=== PATIENT | female | born 2000 | race Caucasian/White ===

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

== ENCOUNTER 2019-02-25 22:23 | Emergency (ER) | payer MEDICAID | END 2019-02-26 | disposition left against medical advice (07) | LOC: EDUNIT# 22:23 → ER 22:25 | DX: O21.9 Vomiting of pregnancy, unspecified (principal); Z3A.08 8 weeks gestation of pregnancy ==

== ENCOUNTER → 2019-02-25 | Outpatient (CLI) | payer MEDICAID ==
--- NOTE | 2019-02-25 11:24 | Diagnostic Imaging Report ---
PROCEDURE: US OB SINGLE FETUS <14 WKS. TECHNIQUE: Multiple real-time grayscale images were obtained over the gravid uterus in various projections. INDICATION: dating. FINDINGS: There is an intrauterine gestational sac containing a pole. Mcgrew-rump length measurement is 18 mm consistent with 8 weeks 3 days gestation. heart rate was recorded at 169 beats per minute. No perigestational sac hemorrhage is detected. Gestational sac shape is within normal limits. Adnexa was evaluated. Ovaries were not visualized due to bowel gas. No adnexal mass or free fluid is identified. IMPRESSION: Single live IUP 8 weeks 3 days gestational age. The estimated date of confinement sonographically is 10/04/2019. Dictated by: Dictated on workstation # [id number]
== END ==
LOC: RAD 09:30
PROVIDERS: ATTEND Family Medicine
DX: Z34.91 Encounter for supervision of normal pregnancy, unspecified, first trimester (principal); Z3A.08 8 weeks gestation of pregnancy
CPT/HCPCS: 76801

== ENCOUNTER → 2019-05-12 | Outpatient (CLI) | payer MEDICAID ==
--- NOTE | 2019-05-12 11:36 | Diagnostic Imaging Report ---
INDICATION: survey TECHNIQUE: Multiple real-time grayscale images were obtained over the gravid uterus. COMPARISON: 02/25/2019 FINDINGS: The prior exam of 02/25/2019 noted a single live intrauterine approximately 8 weeks 3 days gestation. On this study the fetus is again visualized. The fetus is in variable presentation. heart motion was noted at a rate of 149 BPM was recorded. There were no abnormality is identified but the four-chamber heart view and the spine were not optimally visualized. A short-term (4-6 week) followup exam would be recommended for further evaluation of the heart and spine. The growth parameters are fairly uniform and have progressed as expected since the prior exam. The estimated weight is in the 43rd percentile. The amniotic fluid volume is within normal limits. The placenta is posterior and low-lying. The position of the placenta could also further evaluated on the followup exam. The cervix was visualized and measures 6.7 CM length. Biometrical measurements are as follows: Biparietal 4.54 cm, age 19 weeks 6 days. Head circumference 16.87 cm, age 19 weeks 4 days. Abdominal circumference 14.99 cm, age 20 weeks 2 days. Femur length 3.14 cm, age 19 weeks 6 days. Sonographic estimate age: 20 weeks 0 days. Sonographic estimated date of delivery: 09/29/2019. Estimated Weight: 323 gm (+/- 47 gm). LMP percentile: 83%. heart rate: 149 beats per minute. number: 1 of 1. IMPRESSION: 1. There is a single live fetus approximately 19 weeks 2 days gestation plus or minus one week. EDC remains October 04, 2019. 2. There were no abnormalities identified but the spine and four-chamber heart view were less than optimal. The placenta is also posterior and low-lying. Recommendations as above. 3. The growth parameters have progressed as expected since the prior exam. Dictated by: Dictated on workstation # [id number]
== END ==
LOC: RAD 09:18
PROVIDERS: ATTEND Family Medicine
DX: Z36.89 Encounter for other specified antenatal screening (principal); Z3A.19 19 weeks gestation of pregnancy
CPT/HCPCS: 76805

== ENCOUNTER → 2019-06-22 | Outpatient (CLI) | payer MEDICAID ==
--- NOTE | 2019-06-23 08:57 | Diagnostic Imaging Report ---
INDICATION: Followup survey TECHNIQUE: Multiple real-time grayscale images were obtained over the gravid uterus. COMPARISON: 05/12/2019 FINDINGS: Of 05/12/2019 noted a single live fetus approximately 19 weeks 2 days gestation. There were no abnormalities otherwise identified. The spine and four-chamber heart view were less than optimal. On this exam, the fetus is again visualized. The fetus is cephalic in presentation. heart motion was noted and a rate of 135 bpm was recorded. The spine and four-chamber heart view were better visualized on this exam. The spine and heart appear to be within normal limits. There is no other abnormality noted. The prior exam also noted that the placenta was posterior and low-lying. On this exam, the placenta remains posterior but is no longer low lying. The amniotic fluid volume is within normal limits. The growth perimeters were not obtained for this study. Biometrical measurements are as follows: Biparietal cm, age weeks days. Head circumference cm, age weeks days. Abdominal circumference cm, age weeks days. Femur length cm, age weeks days. Sonographic estimate age: weeks days. Sonographic estimated date of delivery: . Estimated Weight: gm (+/- gm). LMP percentile: %. heart rate: beats per minute. number: of . IMPRESSION: 1. There is a single live fetus in cephalic presentation. 2. There were no abnormalities identified. In particular the spine and the four-chamber heart view are within normal limits. 3. The placenta is posterior but no longer low lying. Dictated by: Dictated on workstation # [id number]
== END ==
LOC: RAD 16:02
PROVIDERS: ATTEND Family Medicine
DX: Z36.89 Encounter for other specified antenatal screening (principal); Z3A.25 25 weeks gestation of pregnancy
CPT/HCPCS: 76816

== ENCOUNTER 2019-09-13 20:37 | Outpatient (CLI) | payer MEDICAID ==
[~2019-09-13] VITALS: Ht 154.9 cm; Wt 70.9 kg
--- NOTE | 2019-09-13 20:44 | NUR ---
ADDY SURESH presented to unit via ambulation from ED, accompanied by SO, with c/o CRAMPING. ADDY SURESH weighed, gowned, voided, and to bed. EFHM and TOCO applied, VS taken. ADDY SURESH oriented to bed controls, call light, TV, heat, and A/C controls.
[2019-09-13 20:57] VITALS: BP 121/74
[2019-09-13 21:03] VITALS: BP 121/74
[2019-09-13 21:05] LABS: BILIRUBIN,URINE NEGATIVE (NEGATIVE); CLARITY,URINE SLIGHTLY CLOUDY; COLOR,URINE YELLOW; GLUCOSE, URINE (UA) NEGATIVE (NEGATIVE); KETONES,URINE 4+ (NEGATIVE); LEUKOCYTE ESTERASE ,URINE 1+ (NEGATIVE); NITRITE,URINE NEGATIVE (NEGATIVE); PH,URINE 6 (5-9); PROTEIN,URINE 2+ (NEGATIVE); UROBILINOGEN,URINE 1 MG/DL (NORMAL)
[2019-09-13 21:12] LABS: BACTERIA,URINE MODERATE /HPF; SQUAMOUS EPITHELIAL CELL,UR TNTC /HPF; WBC,URINE RARE /HPF
[2019-09-13 22:19] VITALS: BP 121/74
[2019-09-13] MEDS ORDERED: ACETAMINOPHEN 325 MG TABLET PO ONE (22:30)
[2019-09-13] MEDS ORDERED: ACETAMINOPHEN 500 MG TAB (TYLENOL) ONE (22:31)
--- NOTE | 2019-09-13 22:42 | NUR ---
Written discharge instructions reviewed with patient. Discharge instructions signed and copy given. Patient ambulated off unit, accompanied by mother. Condition stable. No signs or symptoms of distress.
--- NOTE | 2019-09-14 08:45 | Physician Query-Final Dx ---
RORY DUMONT 09/14/19 0844: Clinic Account Progress/Dx Physician Query: Please give diagnosis Please include # weeks gestation Date of Service Sep 13, 2019 at 20:37 ANEUDY SKINNER MD 09/16/19 0710: Clinic Account Progress/Dx DIAGNOSIS: Diagnosis 1. Intrauterine at 37 weeks gestation 2. Uterine irritability without labor RORY DUMONT Sep 14, 2019 08:44 ANEUDY SKINNER MD Sep 16, 2019 07:10
== END 2019-09-13 22:19 | disposition home or self-care (01) ==
LOC: WSo 20:37 → LDRP 20:37 → WSo 22:19
PROVIDERS: ATTEND Family Medicine
DX: O36.8190 Decreased fetal movements, unspecified trimester, not applicable or unspecified (principal); O26.899 Other specified pregnancy related conditions, unspecified trimester; R10.2 Pelvic and perineal pain; Z3A.00 Weeks of gestation of pregnancy not specified
CPT/HCPCS: 81000; 87088; 99213

== ENCOUNTER 2019-09-14 11:24 | Inpatient (IN) | payer MEDICAID ==
[2019-09-14] VITALS (46 sets, daily range): BP systolic 78–139; BP diastolic 38–81
[~2019-09-14] VITALS: Ht 155 cm; Wt 69.5 kg
--- NOTE | 2019-09-14 11:10 | NUR ---
ADDY SURESH presented to unit via ambulation from Dr. melendez, with c/o CONTRACTIONS. ADDY SURESH weighed, gowned, voided, and to bed. EFHM and TOCO applied, VS taken. ADDY SURESH oriented to bed controls, call light, TV, heat, and A/C controls.
--- NOTE | 2019-09-14 11:14 | NUR ---
Dr. Quiñonez called and orders rec'd for observation at this time.
--- NOTE | 2019-09-14 11:44 | NUR ---
Dr Quiñonez called to unit. Updated on pt cares. Orders for admission rec'd.
[2019-09-14 11:48] LABS: BILIRUBIN,URINE NEGATIVE (NEGATIVE); CLARITY,URINE CLEAR; COLOR,URINE YELLOW; GLUCOSE, URINE (UA) NEGATIVE (NEGATIVE); KETONES,URINE 4+ (NEGATIVE); LEUKOCYTE ESTERASE ,URINE NEGATIVE (NEGATIVE); NITRITE,URINE NEGATIVE (NEGATIVE); PH,URINE 5 (5-9); PROTEIN,URINE NEGATIVE (NEGATIVE); UROBILINOGEN,URINE NORMAL (NORMAL)
[2019-09-14] MEDS ORDERED: D5 LR IV SOLUTION 1,000 ML IV ONE (11:57)
[2019-09-14] MEDS ORDERED: FLU QUADRIvalent (5+ YOA) 2019-2020 (AFLURIA) 0.5 ML IM ONE (12:00)
[2019-09-14] MEDS ORDERED: MINERAL OIL CONCENTRATE 99.9% 15 ML UDC TOP PRN (12:00)
[2019-09-14 12:09] LABS: BACTERIA,URINE TRACE /HPF; RBC,URINE 0-2 /HPF; WBC,URINE 0-2 /HPF
[2019-09-14] MEDS: D5 LR IV SOLUTION 1,000 ML IV SCH ×2 (12:15→15:17)
--- NOTE | 2019-09-14 12:30 | NUR ---
report received from CAIT Ordonez. care assumed of pt.
[2019-09-14 12:40] LABS: BASOPHILS % (AUTO) 0 % (0-10); EOSINOPHILS # (AUTO) 0.2 10^3/uL (0.0-0.3); EOSINOPHILS % (AUTO) 2 % (0-10); HEMATOCRIT 32 % (35-52); HEMOGLOBIN 10.2 G/DL (11.5-16.0); LYMPHOCYTES # (AUTO) 1.7 X 10^3 (1.0-4.0); LYMPHOCYTES % (AUTO) 15 % (12-44); MEAN CORPUSCULAR HEMOGLOBIN 26 PG (25-34); MEAN CORPUSCULAR HGB CONC 32 G/DL (32-36); MEAN CORPUSCULAR VOLUME 80 FL (80-99); MEAN PLATELET VOLUME 11.2 FL (7.4-10.4); MONOCYTES # (AUTO) 0.6 X 10^3 (0.0-1.0); MONOCYTES % (AUTO) 5 % (0-12); NEUTROPHILS # (AUTO) 8.8 X 10^3 (1.8-7.8); NEUTROPHILS % (AUTO) 78 % (42-75); PLATELET COUNT 261 10^3/uL (130-400); RED CELL DISTRIBUTION WIDTH 14.1 % (10.0-14.5); WHITE BLOOD COUNT 11.3 10^3/uL (4.3-11.0)
--- NOTE | 2019-09-14 13:01 | NUR ---
pt ambulated to room 319 for labor.
--- NOTE | 2019-09-14 13:17 | NUR ---
was called with update on pt's status. no new orders received.
[2019-09-14] MEDS ORDERED: LACTATED RINGERS 1,000 ML IV ONE ×3 (13:18→14:29)
--- NOTE | 2019-09-14 13:29 | NUR ---
anesthesia notified of pt's request for epidural placement.
[2019-09-14] MEDS ORDERED: SUFENTA 0.6MCG/ML BUPIVA 0.125 100 ML ONE (13:42)
--- NOTE | 2019-09-14 13:42 | NUR ---
JEAN PAUL Morales here for epidural placement. Procedure explained, consent reviewed and signed by anesthesia. Questions answered to patient's satisfaction. Time out taken to verify correct patient/procedure. 1347- Patient up to side of bed, assisted into sitting position. Betadine prep done x3 and sterile drape applied. 1354- Local done, see anesthesia record. 1403- Test dose given, see anesthesia record for drug and dosage. Epidural catheter secured in place. Epidural placement complete. 1409-Assisted back into bed, monitors adjusted. Epidural dosed, see anesthesia record. Epidural of Sufenta/Bupvicaine @12cc/hr stated per pump. Patient tolerated procedure well.
[2019-09-14] MEDS ORDERED: fentaNYL INJECTION 100 MCG/2 ML AMP ONE (13:44)
[2019-09-14] MEDS ORDERED: OXYTOCIN/NORMAL SALINE 500 ML IV SCH ×2 (13:45→18:26)
--- NOTE | 2019-09-14 13:45 | History & Physical-OB ---
OB - Chief Complaint & HPI Date/Time Date of Admission: Date of Admission: Sep 14, 2019 at 12:35 Date seen by a Provider: Sep 14, 2019 Time Seen by a Provider: 13:40 Chief Complaint/History OB-Reason for Admission/Chief: Onset of Labor Hx : 2 Hx Para: 1 Expected Date of Delivery: Oct 04, 2019 Gestational Age in Weeks: 37 Gestational Age in Days: 1 Admission Nurse Assessment Rev: Yes History of Labs GBS negative Allergies and Home Medications Allergies Coded Allergies: No Known Drug Allergies (Unverified , 05/04/15) Home Medications [id number]/FA/Omega3/Dha/Fish Oil 1 Each Tab.chew, 1 EACH PO DAILY, (Reported) Patient Home Medication List Home Medication List Reviewed: Yes OB - History Hx of Present Care: Yes Ultrasounds: Normal mid trimester US Obstetrical Complications: None Medical Complications: None Delivery History Hx Blood Disorders: No Adverse Rxn to Tranfusion: No Patient Past Medical History No chronic medical problems Social History/Family History Recent Infectious Disease Expo: No Alcohol Use: Denies Use Recreational Drug Use: No Immunizations Hepatitis A: No Hepatitis B: No Tetanus Booster (TDap): Less than 5yrs OB - Admission Exam Physical Exam Vitals: Vital Signs 09/14/19 11:25 Temp 36.6 Pulse 90 Resp 18 B/P (MAP) 120/66 (84) HEENT: Moist Membranes Heart: Rhythm Normal Lungs: Clear Abdomen: Gravid Reflexes: Normal Cervical Dilatation: 3cm Effacement: 75% Station: -3 Membranes: Intact Heart Rate: 140's Accelerations: Accelerations Present Short Term Variability: Present Intensity: Moderate Labs Laboratory Tests Test 09/14/19 11:30 09/14/19 12:30 Range/Units Urine Color YELLOW Urine Clarity CLEAR Urine pH 5 5-9 Urine Specific [place] 1.020 1.016-1.022 Urine Protein NEGATIVE NEGATIVE Urine Glucose (UA) NEGATIVE NEGATIVE Urine Ketones 4+ H NEGATIVE Urine Nitrite NEGATIVE NEGATIVE Urine Bilirubin NEGATIVE NEGATIVE Urine Urobilinogen NORMAL NORMAL MG/DL Urine Leukocyte Esterase NEGATIVE NEGATIVE Urine RBC (Auto) NEGATIVE NEGATIVE Urine RBC 0-2 /HPF Urine WBC 0-2 /HPF Urine Squamous Epithelial Cells 5-10 /HPF Urine Crystals NONE /LPF Urine Bacteria TRACE /HPF Urine Casts NONE /LPF Urine Mucus SMALL H /LPF Urine Culture Indicated NO White Blood Count 11.3 H 4.3-11.0 10^3/uL Red Blood Count 3.95 L 4.35-5.85 10^6/uL Hemoglobin 10.2 L 11.5-16.0 G/DL Hematocrit 32 L 35-52 % Mean Corpuscular Volume 80 80-99 FL Mean Corpuscular Hemoglobin 26 25-34 PG Mean Corpuscular Hemoglobin Concent 32 32-36 G/DL Red Cell Distribution Width 14.1 10.0-14.5 % Platelet Count 261 130-400 10^3/uL Mean Platelet Volume 11.2 H 7.4-10.4 FL Neutrophils (%) (Auto) 78 H 42-75 % Lymphocytes (%) (Auto) 15 12-44 % Monocytes (%) (Auto) 5 0-12 % Eosinophils (%) (Auto) 2 0-10 % Basophils (%) (Auto) 0 0-10 % Neutrophils # (Auto) 8.8 H 1.8-7.8 X 10^3 Lymphocytes # (Auto) 1.7 1.0-4.0 X 10^3 Monocytes # (Auto) 0.6 0.0-1.0 X 10^3 Eosinophils # (Auto) 0.2 0.0-0.3 10^3/uL Basophils # (Auto) 0.0 0.0-0.1 10^3/uL OB - Assessment/Plan/Diagnosis Assessment Assessment: active labor (at 37w1d) Admission Dx IUP at 37w1d in labor Admission Status: Inpatient Order (span 2 midnights) Reason for Inpatient Admission: L&D Plan Plan: Other (L&D) Other Plan desires epidural pitocin as necessary ANEUDY SKINNER MD Sep 14, 2019 13:44
[2019-09-14] MEDS ORDERED: CATHETER FLUSH 10 ML SYR IV SCH ×2 (14:00→22:00)
[2019-09-14] MEDS ORDERED: diphenhydrAMINE 50 MG/ML INJ (BENADRYL) IV PRN (14:30)
[2019-09-14] MEDS ORDERED: METOCLOPRAMIDE INJ 10 MG/2 ML (REGLAN) IV PRN (14:30)
[2019-09-14] MEDS ORDERED: NALOXONE 0.4 MG/ML 1 ML (NARCAN) VIAL IV PRN ×2 (14:30)
[2019-09-14] MEDS ORDERED: ONDANSETRON 4 MG/2 ML (SDV) Z0FRAN IV PRN (14:30)
[2019-09-14] MEDS ORDERED: EPIDURAL (SUFENTA 0.6MCG/ML BUPIVA 0.125%) 100 ML BAG EPI PRN (14:30)
[2019-09-14] MEDS ORDERED: MEPIVACAINE (CARBOCAINE) 2% 50 ML VIAL ONE (17:43)
--- NOTE | 2019-09-14 18:26 | OB Labor & Delivery Record ---
L&D History Date of Service Date of Service: Sep 14, 2019 History Expected Date of Delivery: Oct 04, 2019 Gestational Age in Weeks: 37 Hx : 2 Hx Para: 1 Complications Events: Routine care Operative Indications (Cesarea: N/A-Vaginal Delivery Intrapartal Events: None L&D Stage1 Stage One Onset of Labor - Date: Sep 14, 2019 Onset of Labor - Time: 01:00 Monitors and Tracing Monitor Mode: Internal Heart Rate: 150 Monitor Accelerations: Uniform Monitor Decelerations: Variable Prison Variability: Average (6-10) Short Term Variability: Present Presentation: Vertex Vital Signs VS - Last 72 Hours, by Label 09/14/19 11:25 Temp 36.6 Pulse 90 Resp 18 B/P (MAP) 120/66 (84) Signs of Distress by FHT Signs of Distress no Rupture of Membranes Spontaneous Ruture of Membrane: No Amniotic Membrane Rupture Time: 13:30 Amniotic Membrane Fluid Desc.: Clear Vaginal Bleeding Description: None L&D Stage2 Stage Two Stage II Date: Sep 14, 2019 Stage II Time: 17:57 Monitors and Tracing Monitor Mode: Internal Heart Rate: 150 Monitor Accelerations: Uniform Monitor Decelerations: Variable Staffing Clerk Variability: Average (6-10) Short Term Variability: Present Position: Left Occiput Anterior Presentation: Vertex Signs of Distress by FHT Signs of Distress no Cord Descript/Complications Cord Vessel Description: 3 Vessels Delivery Type Infant Delivery Method: Spontaneous Vaginal Anterior Shoulder: Left Episiotomy/Perineal Laceration Laceraction(s)/Extensions: Yes Episiotomy Description: Midline, Perineal Extension/lac Sutures Used: Vicryl Degree (describe repair) no repair to periuretral tear since no bleeding and in good proximity. Condition of Infant Delivery 1 minute Comment: 7 5 minute Comment: 9 Condition of Infant Condition of : Living Exam: No Observed Abnormalities Resuscitation Resuscitation: N/A - Spontaneous Resp L&D Stage3 Stage Three Stage III Date: Sep 14, 2019 Stage III Time: 18:01 Pictocin Pitocin ml/hr: 125 Placenta Delivery Placenta Delivery: Spontaneous Delivery Summary Summary Estimated blood loss (mL): 200 Condition of Delivery Examined: Cervix Examined Intervention Required none ANEUDY SKINNER MD Sep 14, 2019 18:25
[2019-09-14] MEDS ORDERED: MEASLES,MUMPS,RUBELLA 1 EA INJ SQ ONE (18:30)
[2019-09-14] MEDS ORDERED: WITCH HAZEL(TUCKS) 40 EA JAR TOP PRN (18:30)
[2019-09-14] MEDS ORDERED: TETANUS,DIPTH,PERTUSS P/F (BOOSTRIX) 0.5 ML VIAL IM ONE (18:30)
[2019-09-14] MEDS ORDERED: BENZOCAINE/MENTHOL (DERMOPLAST) 56 ML CAN TP PRN (18:30)
--- NOTE | 2019-09-14 19:30 | NUR ---
report given to CAIT Olivia.
[2019-09-14] MEDS: DOCUSATE SODIUM 100 MG (COLACE) CAP PO SCH (23:50)
[2019-09-14] MEDS: IBUPROFEN 600 MG (MOTRIN) TAB PO SCH (23:50)
[2019-09-15] MEDS: ACETAMINOPHEN 500 MG TAB (TYLENOL) PO SCH ×2 (01:49→10:45)
[2019-09-15 04:00] VITALS: BP 103/64
[2019-09-15 06:09] LABS: BASOPHILS % (AUTO) 0 % (0-10); EOSINOPHILS # (AUTO) 0.2 10^3/uL (0.0-0.3); EOSINOPHILS % (AUTO) 2 % (0-10); HEMATOCRIT 29 % (35-52); HEMOGLOBIN 9.3 G/DL (11.5-16.0); LYMPHOCYTES # (AUTO) 3.3 X 10^3 (1.0-4.0); LYMPHOCYTES % (AUTO) 24 % (12-44); MEAN CORPUSCULAR HEMOGLOBIN 26 PG (25-34); MEAN CORPUSCULAR HGB CONC 33 G/DL (32-36); MEAN CORPUSCULAR VOLUME 81 FL (80-99); MEAN PLATELET VOLUME 11.8 FL (7.4-10.4); MONOCYTES # (AUTO) 1.4 X 10^3 (0.0-1.0); MONOCYTES % (AUTO) 10 % (0-12); NEUTROPHILS % (AUTO) 65 % (42-75); PLATELET COUNT 233 10^3/uL (130-400); RED CELL DISTRIBUTION WIDTH 14.1 % (10.0-14.5)
[2019-09-15] MEDS: IBUPROFEN 600 MG (MOTRIN) TAB PO SCH ×3 (06:24→18:19)
--- NOTE | 2019-09-15 07:15 | NUR ---
DR. SKINNER HERE.
--- NOTE | 2019-09-15 07:36 | Progress Note ---
Subjective Date Seen by a Provider: Sep 15, 2019 Time Seen by a Provider: 07:10 Subjective/Events-last exam Resting fairly well overnight. She had uterine cramping but this was controlled with ibuprofen and Tylenol. Objective Exam Vital Signs Date Time Temp Pulse Resp B/P (MAP) Pulse Ox O2 Delivery O2 Flow Rate FiO2 09/15/19 04:00 36.4 69 18 103/64 (77) 99 Room Air 09/14/19 23:50 36.8 91 18 127/81 (96) 100 Room Air 09/14/19 22:00 37.2 97 18 103/58 (73) Room Air 09/14/19 21:30 102 18 104/57 (73) Room Air 09/14/19 21:00 37.2 117 18 112/62 (79) Room Air 09/14/19 20:30 114 18 110/57 (74) Room Air 09/14/19 20:15 107 18 113/59 (77) Room Air 09/14/19 20:00 110 18 113/59 (77) Room Air 09/14/19 19:45 109 18 107/51 (69) Room Air 09/14/19 19:30 96 18 117/58 (77) Room Air 09/14/19 19:15 37.3 107 18 119/59 (79) Room Air 09/14/19 19:00 101 18 115/66 (82) Room Air 09/14/19 18:45 111 18 113/64 (80) Room Air 09/14/19 18:30 111 18 108/64 (79) Room Air 09/14/19 18:15 114 18 106/52 (70) Room Air 09/14/19 17:45 37.1 121 18 121/72 (88) Room Air 09/14/19 17:30 120 18 114/60 (78) 100 Room Air 09/14/19 17:15 37.2 125 18 100 Room Air 09/14/19 17:00 102 18 131/70 (90) 100 Room Air 09/14/19 16:45 124 18 119/65 (83) 100 Room Air 09/14/19 16:30 114 18 108/72 (84) 100 Room Air 09/14/19 16:15 108 18 123/67 (85) 100 Room Air 09/14/19 16:00 93 18 119/65 (83) 100 Room Air 09/14/19 15:45 102 18 121/63 (82) 100 Room Air 09/14/19 15:30 111 18 121/68 (85) 100 Room Air 09/14/19 15:15 69 18 128/65 (86) 100 Room Air 09/14/19 15:10 72 18 119/63 (81) 100 Room Air 09/14/19 15:05 82 18 117/63 (81) 100 Room Air 09/14/19 15:00 81 18 129/66 (87) 100 Room Air 09/14/19 14:55 73 18 125/70 (88) 100 Room Air 09/14/19 14:50 85 18 132/70 (90) 100 Room Air 09/14/19 14:45 81 18 129/66 (87) 100 Room Air 09/14/19 14:40 94 18 121/70 (87) 100 Room Air 09/14/19 14:35 124 18 92/51 (65) 100 Room Air 09/14/19 14:30 Room Air 09/14/19 14:28 129 20 89/53 (65) 100 Room Air 09/14/19 14:22 136 92/57 (69) Room Air 09/14/19 14:21 141 89/51 (64) Room Air 09/14/19 14:20 131 20 78/47 (57) 100 Room Air 09/14/19 14:17 111 20 87/52 (64) 100 Room Air 09/14/19 14:15 Room Air 09/14/19 14:12 93 18 78/38 (51) 97 Room Air 09/14/19 14:10 37.1 92 18 106/55 (72) 100 Room Air 09/14/19 14:05 105 18 113/59 (77) 97 Room Air 09/14/19 14:00 114 18 120/66 (84) 97 Room Air 09/14/19 13:55 99 18 121/71 (88) 99 Room Air 09/14/19 13:50 113 18 114/70 (85) 98 Room Air 09/14/19 13:30 115 18 139/64 (89) Room Air 09/14/19 13:00 37.0 72 18 130/65 (86) Room Air 09/14/19 11:25 36.6 90 18 120/66 (84) I & O 10/19 06:59 Intake Total 1000 ml Balance 1000 ml Capillary Refill : General Appearance: No Apparent Distress Respiratory: Lungs Clear Cardiovascular: Regular Rate, Rhythm Gastrointestinal: soft (with uterus firm) Results Lab Laboratory Tests 09/14/19 11:30: Urine Color YELLOW, Urine Clarity CLEAR, Urine pH 5, Urine Specific [place] 1.020, Urine Protein NEGATIVE, Urine Glucose (UA) NEGATIVE, Urine Ketones 4+H, Urine Nitrite NEGATIVE, Urine Bilirubin NEGATIVE, Urine Urobilinogen NORMAL, Urine Leukocyte Esterase NEGATIVE, Urine RBC (Auto) NEGATIVE, Urine RBC 0-2, Urine WBC 0-2, Urine Squamous Epithelial Cells 5-10, Urine Crystals NONE, Urine Bacteria TRACE, Urine Casts NONE, Urine Mucus SMALLH, Urine Culture Indicated NO 09/14/19 12:30: White Blood Count 11.3H, Red Blood Count 3.95L, Hemoglobin 10.2L, Hematocrit 32L , Mean Corpuscular Volume 80, Mean Corpuscular Hemoglobin 26, Mean Corpuscular Hemoglobin Concent 32, Red Cell Distribution Width 14.1, Platelet Count 261, Mean Platelet Volume 11.2H, Neutrophils (%) (Auto) 78H, Lymphocytes (%) (Auto) 15, Monocytes (%) (Auto) 5, Eosinophils (%) (Auto) 2, Basophils (%) (Auto) 0, Neutrophils # (Auto) 8.8H, Lymphocytes # (Auto) 1.7, Monocytes # (Auto) 0.6, Eosinophils # (Auto) 0.2, Basophils # (Auto) 0.0 09/15/19 05:35: White Blood Count 14.0H, Red Blood Count 3.54L, Hemoglobin 9.3L, Hematocrit 29L, Mean Corpuscular Volume 81, Mean Corpuscular Hemoglobin 26, Mean Corpuscular Hemoglobin Concent 33, Red Cell Distribution Width 14.1, Platelet Count 233, Mean Platelet Volume 11.8H, Neutrophils (%) (Auto) 65, Lymphocytes (%) (Auto) 24, Monocytes (%) (Auto) 10, Eosinophils (%) (Auto) 2, Basophils (%) (Auto) 0, Neutrophils # (Auto) 9.0H, Lymphocytes # (Auto) 3.3, Monocytes # (Auto) 1.4H, Eosinophils # (Auto) 0.2, Basophils # (Auto) 0.0 Assessment/Plan Assessment/Plan Assess & Plan/Chief Complaint 1. S/P day #1 -routine PP care orders Clinical Quality Measures DVT/VTE Risk/Contraindication: Risk Factor Score Per Nursin RFS Level Per Nursing on Admit: 1=Low/No VTE PPX ANEUDY SKINNER MD Sep 15, 2019 07:36
[2019-09-15] MEDS: DOCUSATE SODIUM 100 MG (COLACE) CAP PO SCH (08:39)
[2019-09-15 08:42] VITALS: BP 112/64
--- NOTE | 2019-09-15 08:45 | NUR ---
PT IN BED, ON THE PHONE. VS OBTAINED. MEDS GIVEN PO; SEE EMAR FOR FURTHER. INITIAL SHIFT ASSESSMENT COMPLETED; SEE INTERVENTION FOR FURTHER. NO NEEDS VOICED. CALL LIGHT WITHIN REACH. S/O SLEEPING AT THE BEDSIDE.
--- NOTE | 2019-09-15 09:24 | Anesthesia-Regional Post-Op ---
Regional Patient Condition Mental Status: Alert, Oriented x3 Circulation: Same as Pre-Op Headache: Absent Sensation: Full Recovery Motor Block: Absent Post Op Complications Complications None Follow Up Care/Instructions Patient Instructions None needed. Anesthesia/Patient Condition Patient is doing well, no complaints, stable vital signs, no apparent adverse anesthesia problems. No complications reported per nursing. MYKE VINCENT CRNA Sep 15, 2019 09:24
--- NOTE | 2019-09-15 10:48 | NUR ---
PT IN BED, CHANGING 'S DIAPER. ROUTINE TYLENOL GIVEN PO; SEE EMAR FOR FURTHER. VISITORS AT THE BEDSIDE. NO NEEDS VOICED.
[2019-09-15 12:44] VITALS: BP 113/71
--- NOTE | 2019-09-15 12:45 | NUR ---
PT UP IN ROOM, ROOM SERVICE JUST DELIVERED [email or web address] MEAL. VS OBTAINED. MEDS GIVEN PO; SEE EMAR FOR FURTHER. IV DC'D; CATHETER TIP INTACT. GAUZE AND BAND AID APPLIED OVER SITE. NO NEEDS VOICED.
[2019-09-15 16:07] VITALS: BP 112/65
--- NOTE | 2019-09-15 17:07 | Discharge Summary ---
Diagnosis/Chief Complaint Date of Admission Sep 14, 2019 at 12:35 Date of Discharge September 15, 2019 Discharge Date: Sep 15, 2019 Discharge Time: 17:00 Admission Diagnosis Admission Diagnosis 1. IUP at [id number] Discharge Diagnosis 1. IUP at [id number] Reason Hospital Visit 19 yo G2 now T2L2 female who initially presented to [facility] services in the am of 10-14 in active labor. Her EDC is Oct 2019. care essentially unremarkable. GBS status was negative. Discharge Summary-OBS Procedures 1. Epidural per anesthesia 2. 3. Repair of MLE Discharge Physical Examination Allergies: Coded Allergies: No Known Drug Allergies (Unverified , 05/04/15) Vitals & I&Os Vital Signs Date Time Temp Pulse Resp B/P (MAP) Pulse Ox O2 Delivery O2 Flow Rate FiO2 09/15/19 16:07 36.8 70 18 112/65 (81) 98 Room Air General Appearance: No Acute Distress Respiratory: Clear to Auscultation Cardiovascular: Regular Rate Abdominal: Soft (with uterus firm) Neuro: Normal Speech Psych/Mental Status: Mental Status NL Hospital Course Was the Problem List Reviewed?: Yes Following admission in the morning of September 14, 2019 she underwent labor. As previously mentioned she was 3 cm dilated upon presentation. Her fluid was n oted to be clear. Ultimately she received epidural per anesthesia. She required Pitocin augmentation. Ultimately she went on to deliver a term viable female with Apgars of 7 at 1 minute and 9 at 5 minutes. See labor and delivery summary for full details. Following delivery patient underwent routine care orders. She had no complications during the remainder of hospital stay. Her hemoglobin on the morning after delivery was noted to be 9.3 compared to admission hemoglobin of 10.2. She tolerated regular diet. She did not complain of any shortness of breath or leg pain. She was felt ready for dismissal after 24 hour stay. She required only Tylenol and ibuprofen for discomfort. All questions were answered and she will follow up in [address] Skinner. Discharge Instructions to patient/family Please see electronic discharge instructions given to patient. Discharge Medications Reviewed and agree with Discharge Medication list on patient's Discharge Instruction sheet Clinical Quality Measures DVT/VTE Risk/Contraindication: Risk Factor Score Per Nursin RFS Level Per Nursing on Admit: 1=Low/No VTE PPX ANEUDY SKINNER MD Sep 15, 2019 17:07
--- NOTE | 2019-09-15 17:10 | Discharge Inst-Women's Service ---
Discharge Inst-Women's Serv Depart Medication/Instructions New, Converted or Re-Newed RX: Other Instructions may use over the counter ibuprofen 200mg and take 2 or 3 every 6 hours as needed for cramps. Problems Reviewed?: No Consults/Follow Up Additional Follow Up: Yes (with Dr Skinner in 6 weeks.) Activity Activity: Activity as Tolerated Driving Instructions: No Driving for 1 Week Nothing Inside Vagina: No [place] (for 6 weeks.) Diet Discharge Diet: Regular Diet Return to The Hospital For: as below Symptoms to Report to : Bleeding Excessive, Pain Increased, Fever Over 101 Degrees F, Vaginal Discharge Foul For Any Problems or Questions: Contact Your Physician ANEUDY SKINNER MD Sep 15, 2019 17:10
[2019-09-15] MEDS ORDERED: TETANUS,DIPTH,PERTUSS P/F (BOOSTRIX) 0.5 ML VIAL IM ONE (18:44)
[2019-09-15] MEDS ORDERED: FLU QUADRIvalent (5+ YOA) 2019-2020 (AFLURIA) 0.5 ML IM ONE ×2 (18:44→18:46)
[2019-09-15 19:43] VITALS: BP 122/80
--- NOTE | 2019-09-15 20:00 | NUR ---
Written discharge instructions reviewed with patient. Discharge instructions signed and copy given. Patient ambulated off unit, accompanied by staff, S.O. and secured in carseat. Condition stable. No signs or symptoms of distress.
== END 2019-09-15 20:00 | disposition home or self-care (01) | DRG 807 ==
LOC: WSo 11:24 → LDRP 11:25 → WSo 11:44 → LDRP 12:35
PROVIDERS: ADMIT Family Medicine; ATTEND Family Medicine
PROC: 10E0XZZ Delivery of Products of Conception, External Approach (ICD-10-PCS; principal; 2019-09-14)
PROC: 0W8NXZZ Division of Female Perineum, External Approach (ICD-10-PCS; 2019-09-14)
DX: O71.82 Other specified trauma to perineum and vulva (principal); Z3A.37 37 weeks gestation of pregnancy; Z37.0 Single live birth; Z23 Encounter for immunization
CPT/HCPCS: 36415; 81000; 85025; 86850; 86900; 86901; 87088; 90715; 99212; 99213

== ENCOUNTER → 2020-07-05 | Outpatient (CLI) | payer MEDICAID, OTHER ==
--- NOTE | 2020-07-05 13:25 | Diagnostic Imaging Report ---
PROCEDURE: US OB SINGLE FETUS <14 WKS. TECHNIQUE: Multiple Real-time grayscale images were obtained over the gravid uterus in various projections. INDICATION: dating. FINDINGS: There is an intrauterine gestational sac containing a pole. The crown/rump length measurement is 3.6 cm, consistent with a 10 week 4 day gestation. The heart rate was recorded at 167 BPM. No nayeli-gestational sac hemorrhage is detected. The adnexa are unremarkable. No mass or free fluid is seen. IMPRESSION: There is a single live IUP of approximately 10 weeks 4 days gestational age. The estimated date of confinement sonographically is 01/27/2021. Dictated by: Dictated on workstation # [id number]
== END ==
LOC: RAD 10:32
PROVIDERS: ATTEND Family Medicine
DX: Z34.91 Encounter for supervision of normal pregnancy, unspecified, first trimester (principal); Z3A.10 10 weeks gestation of pregnancy
CPT/HCPCS: 76801

== ENCOUNTER → 2020-09-01 | Outpatient (CLI) | payer OTHER ==
[~2020-09-01] MED LIST changes: -OXYC-465 PO; +OXYC-556 PO
--- NOTE | 2020-09-01 16:44 | Diagnostic Imaging Report ---
INDICATION: survey. TECHNIQUE: Multiple real-time grayscale images were obtained over the gravid uterus. COMPARISON: 07/05/2020. FINDINGS: A single live intrauterine gestation is visualized in variable position. The placenta is anterior and not low lying. CHIQUITA is 11.6. Estimated weight is 267 g, consistent with the 53rd percentile. The kidneys, bladder, stomach, four-chamber heart, three-vessel cord, spine, and cord insertion all are visualized and have an unremarkable sonographic appearance. The intracranial contents are suboptimally visualized due to position. Within these limitations, no obvious abnormalities are seen. Cervical length measures 3.5 cm without evidence of funneling. Biometrical measurements are as follows: Biparietal 4.30 cm, age 19 weeks 1 days. Head circumference 15.65 cm, age 18 weeks 4 days. Abdominal circumference 13.78 cm, age 19 weeks 2 days. Femur length 2.87 cm, age 18 weeks 6 days. Sonographic estimate age: 19 weeks 0 days. Sonographic estimated date of delivery: 01/26/2021. Estimated Weight: 267 gm (+/- 39 gm). LMP percentile: 53%. heart rate: 142 beats per minute. number: 1 of 1. IMPRESSION: 1. Single live intrauterine gestation measuring 19 weeks 0 days with an estimated due date of 01/26/2021. These are within range with clinical dates. 2. Somewhat suboptimal evaluation of the intracranial contents due to position. No obvious abnormalities are visualized. The remaining anatomic structures are unremarkable. Recommend follow-up as indicated. Dictated by: Dictated on workstation # [id number]
== END ==
LOC: RAD 15:15
PROVIDERS: ATTEND Family Medicine
DX: Z36.89 Encounter for other specified antenatal screening (principal); Z3A.19 19 weeks gestation of pregnancy
CPT/HCPCS: 76805

== ENCOUNTER → 2020-10-11 | Outpatient (CLI) | payer OTHER ==
--- NOTE | 2020-10-11 14:36 | Diagnostic Imaging Report ---
INDICATION: Follow-up intracranial anatomy. TECHNIQUE: Multiple real-time grayscale images were obtained over the gravid uterus. COMPARISON: 09/01/2020. FINDINGS: There is a single live fetus in a cephalic presentation. heart rate was recorded at 140 bpm. Placenta is anterior. Amniotic fluid index is normal. Cervical length is 5.4 cm. brain anatomy was visualized today and appears unremarkable. IMPRESSION: Unremarkable Limited obstetrical ultrasound. Dictated by: Dictated on workstation # [id number]
== END ==
LOC: RAD 12:42
PROVIDERS: ATTEND Family Medicine
DX: Z09 Encounter for follow-up examination after completed treatment for conditions other than malignant neoplasm (principal)
CPT/HCPCS: 76816

== ENCOUNTER 2020-12-08 14:07 | Outpatient (CLI) | payer MEDICAID ==
[2020-12-08 14:35] VITALS: BP 119/75
--- NOTE | 2020-12-09 08:30 | Physician Query-Final Dx ---
RORY DUMONT 12/09/20 0830: Clinic Account Progress/Dx Physician Query: Please give diagnosis Please include # weeks gestation Date of Service Dec 08, 2020 at 14:07 ANEUDY SKINNER MD 12/12/20 0637: Clinic Account Progress/Dx DIAGNOSIS: Diagnosis 1. IUP at 32 weeks gestation 2. Decreased movement-reassuring RORY DUMONT Dec 09, 2020 08:30 ANEUDY SKINNER MD Dec 12, 2020 06:37
== END 2020-12-08 14:47 | disposition home or self-care (01) ==
LOC: WSo 14:07 → LDRP 14:08 → WSo 14:47
PROVIDERS: ATTEND Family Medicine
DX: O36.8190 Decreased fetal movements, unspecified trimester, not applicable or unspecified (principal); Z3A.00 Weeks of gestation of pregnancy not specified
CPT/HCPCS: 59025

== ENCOUNTER 2021-01-21 16:39 | Inpatient (IN) | payer BC, MEDICAID ==
[2021-01-21] VITALS (35 sets, daily range): BP systolic 85–138; BP diastolic 41–82
[~2021-01-21] VITALS: Ht 154.9 cm; Wt 77.0 kg
[2021-01-21] MEDS ORDERED: LIDOCAINE/EPI 2% 1:200,00 (XYLOCAINE) 10 ML VIAL INJ PRN (17:15)
[2021-01-21] MEDS ORDERED: D5 LR IV SOLUTION 1,000 ML IV SCH (17:15)
[2021-01-21] MEDS ORDERED: MINERAL OIL CONCENTRATE 99.9% 15 ML UDC TOP PRN (17:15)
[2021-01-21] MEDS ORDERED: D5 LR IV SOLUTION 1,000 ML IV ONE (17:28)
[2021-01-21] MEDS ORDERED: BUPIVACAINE 0.25% 30 ML (SENSORCAINE) VIAL ONE (17:39)
[2021-01-21] MEDS ORDERED: fentaNYL INJECTION 100 MCG/2 ML AMP ONE (17:39)
[2021-01-21] MEDS ORDERED: LIDOCAINE PF 2% 5 ML (XYLOCAINE) VIAL ONE (17:39)
[2021-01-21] MEDS ORDERED: LACTATED RINGERS 1,000 ML IV SCH ×2 (18:00→18:15)
[2021-01-21] MEDS ORDERED: fentaNYL 2 mcg/ml BUPIVA 0.125 100 ML ONE (18:03)
[2021-01-21] MEDS ORDERED: NALOXONE 0.4 MG/ML 1 ML (NARCAN) VIAL IV PRN (18:15)
[2021-01-21] MEDS ORDERED: EPIDURAL (fentaNYL 2 MCG/ML BUPIVA 0.125%)100 ML BAG EPI PRN (18:15)
[2021-01-21] MEDS ORDERED: ONDANSETRON 4 MG/2 ML (SDV) Z0FRAN IV PRN (18:15)
[2021-01-21] MEDS ORDERED: diphenhydrAMINE 50 MG/ML INJ (BENADRYL) IV PRN (18:15)
[2021-01-21 18:16] LABS: BASOPHILS # (AUTO) 0.1 10^3/uL (0.0-0.1); BASOPHILS % (AUTO) 0 % (0-10); EOSINOPHILS # (AUTO) 0.2 10^3/uL (0.0-0.3); EOSINOPHILS % (AUTO) 1 % (0-10); HEMATOCRIT 32 % (35-52); HEMOGLOBIN 10.2 g/dL (11.5-16.0); LYMPHOCYTES % (AUTO) 16 % (12-44); MEAN CORPUSCULAR HEMOGLOBIN 26 pg (25-34); MEAN CORPUSCULAR HGB CONC 32 g/dL (32-36); MEAN CORPUSCULAR VOLUME 80 fL (80-99); MONOCYTES # (AUTO) 0.8 10^3/uL (0.0-1.0); MONOCYTES % (AUTO) 6 % (0-12); NEUTROPHILS # (AUTO) 9.2 10^3/uL (1.8-7.8); NEUTROPHILS % (AUTO) 75 % (42-75); PLATELET COUNT 237 10^3/uL (130-400); WHITE BLOOD COUNT 12.3 10^3/uL (4.3-11.0)
[2021-01-21] MEDS ORDERED: ONDANSETRON 4 MG/2 ML (SDV) Z0FRAN ONE (19:52)
[2021-01-21] MEDS ORDERED: OXYTOCIN PRE-MIX DRIP 500 ML IV SCH ×2 (20:00→22:00)
--- NOTE | 2021-01-21 20:00 | History & Physical-OB ---
OB - Chief Complaint & HPI Date/Time Date of Admission: January 21, 2021 Date seen by a Provider: Jan 21, 2021 Time Seen by a Provider: 19:45 Chief Complaint/History OB-Reason for Admission/Chief: Onset of Labor Hx : 3 Hx Para: 2 Expected Date of Delivery: Jan 27, 2021 Gestational Age in Weeks: 39 Gestational Age in Days: 1 Admission Nurse Assessment Rev: Yes History of Labs GBS neg Allergies and Home Medications Allergies Coded Allergies: No Known Drug Allergies (Unverified , 05/04/15) Home Medications [id number]/FA/Omega3/Dha/Fish Oil 1 Each Tab.chew, 1 EACH PO DAILY, (Reported) Patient Home Medication List Home Medication List Reviewed: Yes OB - History Hx of Present Care: Yes Ultrasounds: Normal mid trimester US Obstetrical Complications: None Medical Complications: None Delivery History Hx Blood Disorders: No Adverse Rxn to Tranfusion: No Patient Past Medical History No chronic medical problems Immunizations Hepatitis A: No Hepatitis B: No Tetanus Booster (TDap): Less than 5yrs OB - Admission Exam Physical Exam Vitals: Vital Signs 01/21/21 01/21/21 01/21/21 18:26 18:48 18:54 Temp 36.8 Pulse 89 Resp 16 B/P (MAP) 105/57 (73) Pulse Ox 100 O2 Delivery Room Air HEENT: Moist Membranes Heart: Rhythm Normal Lungs: Clear Abdomen: Gravid Cervical Dilatation: 5cm Effacement: 75% Station: -3 Membranes: Intact Heart Rate: 140's Accelerations: Accelerations Present Short Term Variability: Present Detention Variability: Average (6-25) Contractions on Admission: < 5 Minutes Apart Intensity: Moderate Labs Laboratory Tests Test 01/21/21 18:00 Range/Units White Blood Count 12.3 H 4.3-11.0 10^3/uL Red Blood Count 4.00 3.80-5.11 10^6/uL Hemoglobin 10.2 L 11.5-16.0 g/dL Hematocrit 32 L 35-52 % Mean Corpuscular Volume 80 80-99 fL Mean Corpuscular Hemoglobin 26 25-34 pg Mean Corpuscular Hemoglobin Concent 32 32-36 g/dL Red Cell Distribution Width 15.3 H 10.0-14.5 % Platelet Count 237 130-400 10^3/uL Mean Platelet Volume 12.0 9.0-12.2 fL Immature Granulocyte % (Auto) 1 % Neutrophils (%) (Auto) 75 42-75 % Lymphocytes (%) (Auto) 16 12-44 % Monocytes (%) (Auto) 6 0-12 % Eosinophils (%) (Auto) 1 0-10 % Basophils (%) (Auto) 0 0-10 % Neutrophils # (Auto) 9.2 H 1.8-7.8 10^3/uL Lymphocytes # (Auto) 2.0 1.0-4.0 10^3/uL Monocytes # (Auto) 0.8 0.0-1.0 10^3/uL Eosinophils # (Auto) 0.2 0.0-0.3 10^3/uL Basophils # (Auto) 0.1 0.0-0.1 10^3/uL Immature Granulocyte # (Auto) 0.1 0.0-0.1 10^3/uL OB - Assessment/Plan/Diagnosis Assessment Assessment: active labor Admission Dx IUP at 39w1d gestation in active labor Admission Status: Inpatient Order (span 2 midnights) Reason for Inpatient Admission: L&D Plan Plan: Expectant Management Other Plan -desires epidural -pitocin if necessary ANEUDY SKINNER MD Jan 21, 2021 20:00
--- NOTE | 2021-01-21 21:51 | OB Labor & Delivery Record ---
L&D History Date of Service Date of Service: Jan 21, 2021 History Expected Date of Delivery: Jan 27, 2021 Gestational Age in Weeks: 39 Hx : 3 Hx Para: 3 Complications Events: Routine care Operative Indications (Cesarea: N/A-Vaginal Delivery Intrapartal Events: None L&D Stage1 Stage One Onset of Labor - Date: Jan 21, 2021 Onset of Labor - Time: 10:00 Monitors and Tracing Monitor Mode: External Heart Rate: 130 Monitor Accelerations: Uniform Monitor Decelerations: None Station: -2 Imaging Scheduler Variability: Average (6-10) Short Term Variability: Present Presentation: Vertex Vital Signs VS - Last 72 Hours, by Label 01/21/21 01/21/21 01/21/21 01/21/21 16:53 18:06 18:23 18:25 Temp 36.8 Pulse 100 90 106 102 Resp 16 16 16 B/P (MAP) 134/67 (89) 124/73 (90) 138/82 (100) 136/82 (100) Pulse Ox 98 O2 Delivery Room Air Room Air 01/21/21 01/21/21 01/21/21 01/21/21 18:26 18:29 18:32 18:34 Temp 36.8 Pulse 90 103 112 110 Resp 20 B/P (MAP) 131/80 (97) 132/80 (97) 115/67 (83) Pulse Ox 99 O2 Delivery Room Air 01/21/21 01/21/21 01/21/21 01/21/21 18:38 18:42 18:45 18:48 Pulse 102 99 100 74 B/P (MAP) 108/59 (75) 104/55 (71) 105/56 (72) 85/41 (56) Pulse Ox 99 99 99 100 O2 Delivery Room Air Room Air Room Air Room Air 01/21/21 01/21/21 01/21/21 18:50 18:52 18:54 Pulse 79 91 89 Resp 16 B/P (MAP) 89/51 (64) 94/52 (66) 105/57 (73) Signs of Distress by FHT Signs of Distress no Rupture of Membranes Spontaneous Ruture of Membrane: No Amniotic Membrane Rupture Time: 19:45 Amniotic Membrane Fluid Desc.: Clear Vaginal Bleeding Description: None Induction/Anesthesia Epidural Cath Placement - Time: 1827 L&D Stage2 Stage Two Stage II Date: Jan 21, 2021 Stage II Time: 21:29 Monitors and Tracing Monitor Mode: Internal Heart Rate: 130 Monitor Accelerations: Uniform Monitor Decelerations: Early Imaging Scheduler Variability: Average (6-10) Short Term Variability: Present Position: Left Occiput Anterior Presentation: Vertex Signs of Distress by FHT Signs of Distress no Cord Descript/Complications Cord Vessel Description: 3 Vessels Delivery Type Delivery Method: Spontaneous Vaginal Anterior Shoulder: Left Episiotomy/Perineal Laceration Laceraction(s)/Extensions: Yes Episiotomy Description: Periurethral Extnsion/lac Sutures Used: Vicryl Condition of Delivery 1 minute Comment: 8 5 minute Comment: 9 Condition of Condition of Infant: Living Exam: No Observed Abnormalities Resuscitation Resuscitation: N/A - Spontaneous Resp L&D Stage3 Stage Three Stage III Date: Jan 21, 2021 Stage III Time: 21:33 Pictocin Pitocin Administration mu/min: 12 Placenta Delivery Placenta Delivery: Spontaneous Delivery Summary Summary Estimated blood loss (mL): 150 Condition of Delivery Examined: Cervix Examined Post Hemorrhage: No Intervention Required none ANEUDY SKINNER MD Jan 21, 2021 21:51
[2021-01-21] MEDS ORDERED: CATHETER FLUSH 10 ML SYR IV SCH ×2 (22:00)
[2021-01-21] MEDS ORDERED: BENZOCAINE/MENTHOL (DERMOPLAST) 60 ML CAN TP PRN (22:00)
[2021-01-21] MEDS ORDERED: TETANUS,DIPTH,PERTUSS P/F (BOOSTRIX) 0.5 ML VIAL IM ONE (22:00)
[2021-01-21] MEDS ORDERED: MEASLES,MUMPS,RUBELLA 1 EA INJ SQ ONE (22:00)
[2021-01-21] MEDS ORDERED: WITCH HAZEL(TUCKS) 40 EA JAR TOP PRN (22:00)
[2021-01-21] MEDS: IBUPROFEN 600 MG (MOTRIN) TAB PO SCH (22:45)
[2021-01-22] MEDS: ACETAMINOPHEN 500 MG TAB (TYLENOL) PO SCH ×4 (00:15→20:00)
[2021-01-22 05:00] VITALS: BP 116/69
[2021-01-22] MEDS: IBUPROFEN 600 MG (MOTRIN) TAB PO SCH ×4 (05:06→23:57)
[2021-01-22 06:01] LABS: BASOPHILS # (AUTO) 0.1 10^3/uL (0.0-0.1); BASOPHILS % (AUTO) 0 % (0-10); EOSINOPHILS # (AUTO) 0.2 10^3/uL (0.0-0.3); EOSINOPHILS % (AUTO) 1 % (0-10); HEMATOCRIT 30 % (35-52); HEMOGLOBIN 9.7 g/dL (11.5-16.0); LYMPHOCYTES # (AUTO) 2.7 10^3/uL (1.0-4.0); LYMPHOCYTES % (AUTO) 17 % (12-44); MEAN CORPUSCULAR HEMOGLOBIN 26 pg (25-34); MEAN CORPUSCULAR HGB CONC 32 g/dL (32-36); MEAN CORPUSCULAR VOLUME 79 fL (80-99); MEAN PLATELET VOLUME 11.9 fL (9.0-12.2); MONOCYTES # (AUTO) 1.5 10^3/uL (0.0-1.0); MONOCYTES % (AUTO) 9 % (0-12); NEUTROPHILS # (AUTO) 11.7 10^3/uL (1.8-7.8); NEUTROPHILS % (AUTO) 72 % (42-75); PLATELET COUNT 192 10^3/uL (130-400); WHITE BLOOD COUNT 16.3 10^3/uL (4.3-11.0)
[2021-01-22] MEDS ORDERED: FLU QUADRIvalent (3YOA+) 60 mcg/0.5 ml 2020-21 (AFLURIA) IM ONE (07:00)
[2021-01-22 07:35] VITALS: BP 114/71
[2021-01-22] MEDS: DOCUSATE SODIUM 100 MG (COLACE) CAP PO SCH ×2 (07:38→19:14)
--- NOTE | 2021-01-22 08:22 | Progress Note ---
Subjective Date Seen by a Provider: Jan 22, 2021 Time Seen by a Provider: 08:00 Subjective/Events-last exam no complaints this morning. No significant vaginal bleeding. Cramping is minimal. Objective Exam Vital Signs Date Time Temp Pulse Resp B/P (MAP) Pulse Ox O2 Delivery O2 Flow Rate FiO2 01/22/21 07:35 36.4 63 16 114/71 (85) 99 Room Air 01/22/21 05:00 36.4 69 16 116/69 (85) 98 Room Air 01/21/21 23:59 37.2 77 16 112/58 (76) Room Air 01/21/21 23:29 87 16 113/56 (75) Room Air 01/21/21 22:59 90 16 101/57 (72) Room Air 01/21/21 22:45 86 16 101/59 (73) Room Air 01/21/21 22:30 83 16 97/51 (66) Room Air 01/21/21 22:15 90 16 112/56 (74) Room Air 01/21/21 21:45 37.3 101 16 117/56 (76) Room Air 01/21/21 21:05 101 16 115/57 (76) Room Air 01/21/21 20:55 110 16 98/56 (70) Room Air 01/21/21 20:45 77 16 99/55 (70) Room Air 01/21/21 20:30 82 16 103/56 (72) Room Air 01/21/21 20:15 93 16 101/56 (71) Room Air 01/21/21 20:00 99 16 110/54 (72) Room Air 01/21/21 19:50 97 16 118/59 (78) Room Air 01/21/21 19:30 36.2 106 16 104/58 (73) Room Air 01/21/21 19:25 99 16 94/52 (66) Room Air 01/21/21 19:20 100 16 104/57 (73) Room Air 01/21/21 19:15 109 16 112/57 (75) Room Air 01/21/21 19:10 104 16 104/55 (71) Room Air 01/21/21 19:05 90 16 108/58 (75) 98 Room Air 01/21/21 18:54 89 16 105/57 (73) 01/21/21 18:52 91 94/52 (66) 01/21/21 18:50 79 89/51 (64) 01/21/21 18:48 74 85/41 (56) 100 Room Air 01/21/21 18:45 100 105/56 (72) 99 Room Air 01/21/21 18:42 99 104/55 (71) 99 Room Air 01/21/21 18:38 102 108/59 (75) 99 Room Air 01/21/21 18:34 110 115/67 (83) 01/21/21 18:32 112 132/80 (97) 01/21/21 18:29 103 131/80 (97) 01/21/21 18:26 36.8 90 20 99 Room Air 01/21/21 18:25 102 136/82 (100) 01/21/21 18:23 106 16 138/82 (100) Room Air 01/21/21 18:06 90 16 124/73 (90) 01/21/21 16:53 36.8 100 16 134/67 (89) 98 Room Air I & O 01/22/21 07:00 Intake Total 2500 ml Balance 2500 ml Capillary Refill : Less Than 3 Seconds General Appearance: No Apparent Distress Neck: Supple Respiratory: Lungs Clear Cardiovascular: Regular Rate, Rhythm Gastrointestinal: soft (with uterus firm) Results Lab Laboratory Tests 01/21/21 18:00: White Blood Count 12.3H, Red Blood Count 4.00, Hemoglobin 10.2L, Hematocrit 32L, Mean Corpuscular Volume 80, Mean Corpuscular Hemoglobin 26, Mean Corpuscular Hemoglobin Concent 32, Red Cell Distribution Width 15.3H, Platelet Count 237, Mean Platelet Volume 12.0, Immature Granulocyte % (Auto) 1, Neutrophils (%) (Auto) 75, Lymphocytes (%) (Auto) 16, Monocytes (%) (Auto) 6, Eosinophils (%) (Auto) 1, Basophils (%) (Auto) 0, Neutrophils # (Auto) 9.2H, Lymphocytes # (Auto) 2.0, Monocytes # (Auto) 0.8, Eosinophils # (Auto) 0.2, Basophils # (Auto) 0.1, Immature Granulocyte # (Auto) 0.1 01/21/21 23:00: 01/22/21 05:41: White Blood Count 16.3H, Red Blood Count 3.79L, Hemoglobin 9.7L, Hematocrit 30L, Mean Corpuscular Volume 79L, Mean Corpuscular Hemoglobin 26, Mean Corpuscular Hemoglobin Concent 32, Red Cell Distribution Width 15.4H, Platelet Count 192, Mean Platelet Volume 11.9, Immature Granulocyte % (Auto) 1, Neutrophils (%) (Auto) 72, Lymphocytes (%) (Auto) 17, Monocytes (%) (Auto) 9, Eosinophils (%) (Auto) 1, Basophils (%) (Auto) 0, Neutrophils # (Auto) 11.7H, Lymphocytes # (Auto) 2.7, Monocytes # (Auto) 1.5H, Eosinophils # (Auto) 0.2, Basophils # (Auto) 0.1, Immature Granulocyte # (Auto) 0.1 Assessment/Plan Assessment/Plan Assess & Plan/Chief Complaint 1. Status post spontaneous vaginal delivery -Routine care orders -Home in the morning of January 23 ANEUDY SKINNRE MD Jan 22, 2021 08:22
[2021-01-22 13:30] VITALS: BP 120/74
--- NOTE | 2021-01-22 15:33 | Anesthesia-Regional Post-Op ---
Regional Patient Condition Mental Status: Alert, Oriented x3 Circulation: Same as Pre-Op Headache: Absent Sensation: Full Recovery Motor Block: Absent Post Op Complications Complications None Follow Up Care/Instructions Patient Instructions None needed. Anesthesia/Patient Condition Patient is doing well, no complaints, stable vital signs, no apparent adverse anesthesia problems. No complications reported per nursing. CLAUDY SOLORIO CRNA Jan 22, 2021 15:33
[2021-01-22 19:13] VITALS: BP 110/69
[2021-01-22 23:55] VITALS: BP 120/61
[2021-01-23] MEDS: ACETAMINOPHEN 500 MG TAB (TYLENOL) PO SCH (02:00)
[2021-01-23 05:50] VITALS: BP 122/67
[2021-01-23] MEDS: IBUPROFEN 600 MG (MOTRIN) TAB PO SCH (05:51)
--- NOTE | 2021-01-23 07:15 | Discharge Summary ---
Diagnosis/Chief Complaint Date of Admission Jan 21, 2021 at 21:59 Date of Discharge Discharge Date: Jan 23, 2021 Discharge Time: 11:00 Admission Diagnosis Admission Diagnosis 1. IUP at term 39 weeks. Discharge Diagnosis 1. IUP at term 39 weeks. Discharge Summary-OBS Procedures 1. Epidural per anesthesia 2. 3 Repair of minor perineal laceration Discharge Physical Examination Allergies: Coded Allergies: No Known Drug Allergies (Unverified , 05/04/15) Vitals & I&Os Vital Signs Date Time Temp Pulse Resp B/P (MAP) Pulse Ox O2 Delivery O2 Flow Rate FiO2 01/23/21 05:50 36.5 73 18 122/67 (85) 98 01/22/21 13:30 Room Air General Appearance: No Acute Distress Respiratory: Clear to Auscultation Cardiovascular: Regular Rate Hospital Course Was the Problem List Reviewed?: Yes Discharge Instructions to patient/family Please see electronic discharge instructions given to patient. Discharge Medications Reviewed and agree with Discharge Medication list on patient's Discharge Ins truction sheet ANEUDY SKINNER MD Jan 23, 2021 07:15
--- NOTE | 2021-01-23 07:17 | Discharge Inst-Women's Service ---
Discharge Inst-Women's Serv Depart Medication/Instructions New, Converted or Re-Newed RX: Other Instructions may have [id number] ibuprofen and may take 2 or 3 tablets every 6 hours as needed for uterine cramps. Problems Reviewed?: Yes Consults/Follow Up Additional Follow Up: Yes (Dr. Skinner in 6 weeks) Activity Driving Instructions: No Driving for 1 Week Nothing Inside Vagina: No [place] (for 6 weeks) Diet Discharge Diet: Regular Diet Return to The [facility] For: as below Symptoms to Report to : Bleeding Excessive, Pain Increased, Vaginal Discharge Foul For Any Problems or Questions: Contact Your Physician ANEUDY SKINNER MD Jan 23, 2021 07:17
[2021-01-23 08:30] VITALS: BP 117/56
[2021-01-23] MEDS: DOCUSATE SODIUM 100 MG (COLACE) CAP PO SCH (08:30)
[2021-01-23 11:00] VITALS: BP 117/56
== END 2021-01-23 11:00 | disposition home or self-care (01) | DRG 807 ==
LOC: WSo 16:39 → LDRP 16:40 → WSo 21:59 → LDRP 21:59
PROVIDERS: ADMIT Family Medicine; ATTEND Family Medicine
PROC: 10E0XZZ Delivery of Products of Conception, External Approach (ICD-10-PCS; principal; 2021-01-21)
PROC: 0UQMXZZ Repair Vulva, External Approach (ICD-10-PCS; 2021-01-21)
DX: O80 Encounter for full-term uncomplicated delivery (principal); Z37.0 Single live birth; Z3A.39 39 weeks gestation of pregnancy; Z20.822 Contact with and (suspected) exposure to COVID-19
CPT/HCPCS: 36415; 85025; 86850; 86900; 86901; 87635; 90686; 90715; 99212